=== PATIENT | male | born 1970 | race Caucasian/White ===

== ENCOUNTER → 2019-04-23 | Outpatient (CLI) | payer OTHER ==
[2016-07-24 14:30] VITALS: BP 163/112
[~2019-04-23] MED LIST: KETOROLAC TROME10 MG PO; LOSARTAN POTAS100 MG PO; MELOXICAM; ULTRAM50 M1 PO; XANAX 0.5MG0.5 MG PO
== END ==
LOC: RAD 13:30
DX: M48.07 Spinal stenosis, lumbosacral region (principal); M51.36 Other intervertebral disc degeneration, lumbar region; M47.817 Spondylosis without myelopathy or radiculopathy, lumbosacral region; S32.009S Unspecified fracture of unspecified lumbar vertebra, sequela